=== PATIENT | female | born 1975 | race Two or more races ===

== ENCOUNTER 2016-10-13 13:50 | Emergency (ER) | payer MEDICAID ==
[~2016-10-13] VITALS: Ht 154.9 cm; Wt 72.6 kg
[~2016-10-13 13:50] MED LIST: BENA20TA4 PO; CHLO0.12; CLIN300C2 PO; TRAM50TA2 PO
[2016-10-13 14:07] VITALS: BP 134/92
== END 2016-10-13 14:40 | disposition home or self-care (01) ==
LOC: ER 13:50
DX: M62.838 Other muscle spasm (principal); I10 Essential (primary) hypertension; X58.XXXA Exposure to other specified factors, initial encounter; Y93.89 Activity, other specified; Y99.8 Other external cause status; Y92.89 Other specified places as the place of occurrence of the external cause

== ENCOUNTER 2018-06-05 13:35 | Emergency (ER) | payer MEDICAID ==
[~2018-06-05] VITALS: Ht 154.9 cm; Wt 73.0 kg
[~2018-06-05 13:35] MED LIST changes: +BENA20TA14 PO; -BENA20TA4 PO
[2018-06-05 13:47] VITALS: BP 157/105
[2018-06-05 15:10] LABS: Basophils # (auto) 0 uL; Basophils % (auto) 0.3 % (0.0-2.0); Eosinophils # (auto) 0 uL; Eosinophils % (auto) 0.2 % (0.0-7.0); Hematocrit 40.1 % (36.0-46.0); Hemoglobin 13.6 g/dL (12.2-16.2); Lymphocytes # (auto) 1.2 uL; Lymphocytes % (auto) 18.2 % (10.0-50.0); Mean Corpuscular Volume 91.1 fL (80.0-100.0); Monocytes # (auto) 0.5 uL; Monocytes % (auto) 7.4 % (0.0-12.0); Neutrophils # (auto) 4.9 uL; Neutrophils % (auto) 73.9 % (37.0-80.0); Platelet Count (auto) 345 10^3/uL (140-450); White Blood Cell 6.6 10^3/uL (4.4-10.8)
== END 2018-06-05 15:19 | disposition home or self-care (01) ==
LOC: ER 13:35
DX: H60.92 Unspecified otitis externa, left ear (principal); R42 Dizziness and giddiness; I10 Essential (primary) hypertension; Z79.899 Other long term (current) drug therapy
CPT/HCPCS: 36415; 70450; 85025

== ENCOUNTER 2018-10-31 18:01 | Emergency (ER) | payer MEDICAID ==
[~2018-10-31] VITALS: Ht 154.9 cm; Wt 72.6 kg
[2018-10-31 18:11] VITALS: BP 155/98
== END 2018-10-31 21:35 | disposition left against medical advice (07) ==
LOC: ER 18:05
DX: M79.641 Pain in right hand (principal); R20.2 Paresthesia of skin; I10 Essential (primary) hypertension; Z53.21 Procedure and treatment not carried out due to patient leaving prior to being seen by health care provider
CPT/HCPCS: 70450

== ENCOUNTER 2018-11-01 11:04 | Emergency (ER) | payer MEDICAID ==
[~2018-11-01] VITALS: Ht 154.9 cm; Wt 71.7 kg
[2018-11-01 11:31] VITALS: BP 158/90
== END 2018-11-01 12:01 | disposition home or self-care (01) ==
LOC: ER 11:04
DX: R20.0 Anesthesia of skin (principal); I10 Essential (primary) hypertension